=== PATIENT | female | born 1975 | race Caucasian/White ===

== ENCOUNTER 2019-02-01 07:56 | Emergency (ER) | payer OTHER ==
[~2019-02-01] VITALS: Ht 175.3 cm; Wt 95.3 kg
[2019-02-01] MEDS ORDERED: ONDANSETRON ODT 4 MG TAB.RAPDIS SL ONE (09:15)
[2019-02-01] MEDS ORDERED: HYDROCODONE/APAP 5-325MG TABLET PO ONE (09:15)
[2019-02-01] MEDS ORDERED: IBUPROFEN 800 MG TABLET PO ONE (09:15)
[2019-02-01] MEDS ORDERED: HYDROCODONE/APAP 5-325MG TABLET ONE (09:18)
[2019-02-01] MEDS ORDERED: ONDANSETRON ODT 4 MG TAB.RAPDIS ONE (09:18)
[2019-02-01] MEDS ORDERED: IBUPROFEN 800 MG TABLET ONE (09:18)
--- NOTE | 2019-02-01 09:21 | NUR ---
PATIENT WAS SEEN BY MD FOR C/O FOOT PAIN. XRAYS DONE. MEDS GIVEN ORDERED.
--- NOTE | 2019-02-01 09:46 | NUR ---
PATIENT STATES PAIN HAS DIMINISHED. DC, RX (INCLUDING PRECAUTIONS) AND FOLLOW UP INSTRUCTIONS GIVEN AND EXPLAINED TO PATIENT WHO STATES SHE UNDERSTANDS ALL INSTRUCTIONS. PATIENT CAME IN TO ER WITH CRUTCHES AND STATES SHE KNOWS HOW TO USE THEM...
== END 2019-02-01 09:48 | disposition home or self-care (01) ==
LOC: ER 07:56
DX: S92.322A Displaced fracture of second metatarsal bone, left foot, initial encounter for closed fracture (principal); W10.8XXA Fall (on) (from) other stairs and steps, initial encounter; Y93.89 Activity, other specified; Y92.89 Other specified places as the place of occurrence of the external cause; Y99.8 Other external cause status
CPT/HCPCS: 73630; A4663; Q0162

== ENCOUNTER 2024-11-02 00:50 | Emergency (ER) | payer OTHER ==
[~2024-11-02] VITALS: Ht 175.3 cm; Wt 70.3 kg
[2024-11-02 01:12] LABS: PLATELET COUNT (AUTO) 383 K/uL (179-408); RED BLOOD CELL COUNT(AUTO) 4.90 MIL/uL (3.63-4.92); RED CELL DISTRIBUTION WIDTH 13.7 % (12.3-17.7); WHITE BLOOD COUNT (AUTO) 9.4 K/uL (3.8-11.8)
[2024-11-02 01:33] LABS: ETHANOL < 3 MG/DL (0-10)
[2024-11-02] MEDS ORDERED: ONDANSETRON 4 MG/2 ML VIAL ONE (01:34)
[2024-11-02] MEDS ORDERED: SEMA1PEN (01:40)
[2024-11-02] MEDS: ONDANSETRON 4 MG/2 ML VIAL IV ONE (01:40)
[2024-11-02] MEDS: IV NS 1000 ML 1,000 ML IV ONE ×2 (01:48→03:42)
[2024-11-02 01:51] LABS: ASPARTATE AMINOTRANSFERASE 83.0 U/L (15-37); CREATININE 1.1 mg/dL (0.6-1.3); SODIUM SERUM 129.0 mmol/L (136-145); TOTAL PROTEIN, SERUM 8.7 g/dL (6.4-8.2); UREA NITROGEN, BLOOD 5.0 mg/dL (7-18)
[2024-11-02 02:10] LABS: LACTIC ACID 11.7 mmol/L (0.4-2.0)
[2024-11-02 03:40] LABS: CREATININE 0.8 mg/dL (0.6-1.3); SODIUM SERUM 132.0 mmol/L (136-145); UREA NITROGEN, BLOOD 6.0 mg/dL (7-18)
[2024-11-02 03:46] LABS: ASPARTATE AMINOTRANSFERASE 75.0 U/L (15-37); TOTAL PROTEIN, SERUM 6.8 g/dL (6.4-8.2)
[2024-11-02] MEDS ORDERED: LEVE500T9 PO (04:17)
[2024-11-02] MEDS ORDERED: ONDA4TAB11 PO (04:21)
[2024-11-02] MEDS ORDERED: LORAZEPAM 1 MG TABLET ONE (04:22)
[2024-11-02] MEDS: LORAZEPAM 0.5 MG TABLET PO ONE (04:27)
[2024-11-02 04:28] VITALS: BP 104/76; O2SAT 100
[2024-11-02 04:54] LABS: *URINE HCG, QUAL NEGATIVE (NEGATIVE)
[2024-11-02 05:02] LABS: *AMPHETAMINE, URINE NEGATIVE (NEGATIVE); *BARBITURATE, URINE NEGATIVE (NEGATIVE); *BENZODIAZEPINE, URINE NEGATIVE (NEGATIVE); *CANNABINOID, URINE POSITIVE (NEGATIVE); *COCCAINE, URINE NEGATIVE (NEGATIVE); *OPIATE, URINE NEGATIVE (NEGATIVE); *PHENCYCLIDINE SCREEN,URINE NEGATIVE (NEGATIVE); FENTANYL, URINE NEGATIVE (NEGATIVE)
== END 2024-11-02 04:30 | disposition home or self-care (01) ==
LOC: ER 00:52
DX: R56.9 Unspecified convulsions (principal); E87.20 Acidosis, unspecified; E87.1 Hypo-osmolality and hyponatremia; E86.0 Dehydration; R23.2 Flushing; R26.2 Difficulty in walking, not elsewhere classified; R74.8 Abnormal levels of other serum enzymes; R94.6 Abnormal results of thyroid function studies; N17.9 Acute kidney failure, unspecified; R29.810 Facial weakness; Z79.899 Other long term (current) drug therapy
CPT/HCPCS: 80076; 80053; 80048; 84703; 84443; 85025; 36415; 71045; 70450; 93005; 99285; 96361; 96374; 96375; 83605 ×2; 80320; 80307; J1953 ×2; J2405; J7040 ×2; A4606; A4663; G0480